=== PATIENT | female | born 1975 | race Caucasian/White ===

== ENCOUNTER 2021-12-07 10:37 | Emergency (ER) | payer BC ==
[~2021-12-07] VITALS: Ht 158.8 cm; Wt 70.0 kg
[~2021-12-07 10:37] MED LIST: ALEVE220 M1 PO; AMOXICILLIN500 MG PO; AUGMENTIN875TAB OR; BENADRYL25 MG PO; CHANTIX1 MG OR; DOXYCYCLINE20 MG OR; FLONASE NASAL50 MCG; INCIVEK PO; RIBAVIRIN200 M1; SOLU-MEDROL125 MG IM; ULTRAM50 M1 PO; WELLBUTRIN SR150 M1 PO; WELLBUTRIN SR150 MG PO; ZPAK PO; [UNRECOGNIZED DRUG - OTHER] SC
[2021-12-07 11:21] VITALS: BP 142/91
[2021-12-07 11:30] VITALS: BP 117/74
[2021-12-07 11:56] VITALS: BP 117/74
[2021-12-07] MEDS ORDERED: ALBENDAZOLE200 MG PO (11:57)
== END 2021-12-07 12:26 | disposition home or self-care (01) | DRG 392 ==
LOC: ED 10:37
DX: B77.9 Ascariasis, unspecified (principal)

== ENCOUNTER 2022-09-28 08:02 | Emergency (ER) | payer BC ==
[2022-09-28] VITALS (17 sets, daily range): BP systolic 123–176; BP diastolic 73–94
[~2022-09-28] VITALS: Ht 158.8 cm; Wt 77.0 kg
[~2022-09-28 08:02] MED LIST changes: +ALBENDAZOLE200 MG PO
[2022-09-28 08:26] LABS: BASO% 0.8 % (0-3); IMMATURE GRANULOCYTES 0.2 % (0.0-5.0); LYMPH% 38.3 % (15-41); MEAN CORPUSCULAR HGB 28.9 pG CALC (26.0-32.0); MEAN CORPUSCULAR HGB CONC 32.3 g/dL CAL (32.0-36.0); MONO% 7.8 % (2-13); NEUT# 2.41 thou/uL (2.00-7.15); NEUT% 45.9 % (42-76); RED BLOOD COUNT 4.78 mill/uL (4.20-5.60); RED CELL DISTRI WIDTH 12.4 % (11.5-15.5)
[2022-09-28 08:30] LABS: HEMATOCRIT 42.7 % (37.0-47.0); HEMOGLOBIN 13.8 g/dl (12.0-16.0); MEAN CELL VOLUME 89.3 fL CALC (80.0-100.0)
[2022-09-28 08:42] LABS: ALBUMIN 4.5 g/dL (3.2-5.0); ALKALINE PHOSPHATASE 78 u/l (38-126); BUN 18 mg/dL (7-17); BUN/CREATININE RATIO 22 (12-20 (CALC)); CHLORIDE 105 mmol/l (95-108); CREATININE 0.8 mg/dL (0.5-1.0); GFR FOR AFR.AMER. > 60 ML/MIN (>=60 (CALC)); GFR OTHER RACES > 60 ML/MIN (>=60 (CALC)); POTASSIUM 4.2 mmol/l (3.5-5.1); SGOT/AST 24 u/l (14-36); SODIUM 142 mmol/l (137-146)
[2022-09-28 08:45] LABS: ANION GAP 11 (6-22 (CALC)); BILIRUBIN, TOTAL 0.4 mg/dL (0.02-1.3); CARBON DIOXIDE 30 mmol/l (22-30); TOTAL PROTEIN 7.2 g/dL (6.3-8.2)
[2022-09-28] MEDS ORDERED: PROTONIX40 M2 PO (13:08)
[2022-09-29] MEDS ORDERED: PROTONIX40 M2 PO (10:49)
== END 2022-09-28 13:50 | disposition home or self-care (01) | DRG 392 ==
LOC: ED 08:02 → ED-I 11:31 → ED 13:50
PROVIDERS: Family Medicine
DX: R10.13 Epigastric pain (principal); Z86.16 Personal history of COVID-19